=== PATIENT | female | born 1995 | race Caucasian/White ===

== ENCOUNTER 2020-11-02 08:37 | Emergency (ER) | payer MEDICAID ==
[~2020-11-02] VITALS: Ht 165.1 cm; Wt 95.3 kg
[2020-11-02 08:41] VITALS: BP 140/94
[2020-11-02] MEDS ORDERED: FLUORESCEIN OPTH STRIP 1 MG ONE (08:49)
[2020-11-02] MEDS ORDERED: FLUORESCEIN OPTH STRIP 1 MG OP ONE (08:50)
--- NOTE | 2020-11-02 08:50 | NUR ---
PT IN TRIAGE FOR EYE ASSESSMENT WITH PT.
[2020-11-02] MEDS ORDERED: POLY10SO OP (09:00)
[2020-11-02 09:05] VITALS: BP 140/94
--- NOTE | 2020-11-02 09:05 | NUR ---
Patient discharged with v/s stable. Written and verbal after care instructions given and explained. Patient alert, oriented and verbalized understanding of instructions. Ambulatory with steady gait. All questions addressed prior to discharge. ID band removed. Patient advised to follow up with PMD. Rx of POLYMYXIN B SULFATE given. Patient educated on indication of medication including possible reaction and side effects. Opportunity to ask questions provided and answered.
== END 2020-11-02 09:05 | disposition home or self-care (01) ==
LOC: MED 08:37
DX: H10.9 Unspecified conjunctivitis (principal)
CPT/HCPCS: 81025; 99283

== ENCOUNTER 2021-09-28 02:27 | Observation (INO) | payer MEDICAID ==
[~2021-09-28] VITALS: Ht 167.6 cm; Wt 108.9 kg
[~2021-09-28 02:27] MED LIST: POLY10SO OP
[2021-09-28 03:19] VITALS: BP 113/61
[2021-09-28] MEDS ORDERED: LACTATED RINGERS 500 ML IV SCH ×2 (03:30)
[2021-09-28] MEDS ORDERED: MORPHINE SULFATE 5 MG/ML VIAL IVP PRN (03:35)
[2021-09-29] MEDS ORDERED: LACTATED RINGERS 1,000 ML IV SCH ×2 (03:30)
== END 2021-09-28 08:30 | disposition home or self-care (01) ==
LOC: MLD 02:27
PROVIDERS: ADMIT Obstetrics & Gynecology; ATTEND Obstetrics & Gynecology
DX: O99.891 Other specified diseases and conditions complicating pregnancy (principal); M54.9 Dorsalgia, unspecified; M79.605 Pain in left leg; O26.893 Other specified pregnancy related conditions, third trimester; R10.32 Left lower quadrant pain; Z3A.34 34 weeks gestation of pregnancy
CPT/HCPCS: 59025; 76805; 81000; 96360; 96361; G0378; Q0092

== ENCOUNTER 2022-02-27 11:48 | Inpatient (IN) | payer MEDICAID ==
[~2022-02-27] VITALS: Ht 167.6 cm; Wt 102.5 kg
[2022-02-27 11:50] VITALS: BP 107/65
[2022-02-27 12:34] LABS: BASOPHILS # (AUTO) 0.1 K/uL (0.00-0.22); BASOPHILS % (AUTO) 1.2 % (0.0-2.0); EOSINOPHILS # (AUTO) 0.2 K/uL (0-0.4); EOSINOPHILS % (AUTO) 2.5 % (0.0-4.0); HEMATOCRIT 33.7 % (36-48); HEMOGLOBIN 10.7 g/dL (12.0-16.0); LYMPHOCYTES # (AUTO) 2.8 K/uL (2.5-16.5); LYMPHOCYTES % (AUTO) 29.6 % (20.5-51.1); MEAN CORPUSCULAR HEMOGLOBIN 24 pg (27-31); MEAN CORPUSCULAR HGB CONC 32 g/dL (33-37); MEAN CORPUSCULAR VOLUME 74.4 fL (80-94); MONOCYTES # (AUTO) 0.7 K/uL (0.8-1.0); NEUTROPHILS # (AUTO) 5.6 K/uL (1.8-7.7); NEUTROPHILS % (AUTO) 59.7 % (42.2-75.2); PLATELET COUNT (AUTO) 309 K/uL (140-450); RED BLOOD CELL COUNT(AUTO) 4.53 MIL/uL (4.20-5.40); RED CELL DISTRIBUTION WIDTH 16.1 % (11.6-13.7); WHITE BLOOD COUNT (AUTO) 9.4 K/uL (4.8-10.8)
[2022-02-27] MEDS ORDERED: NACL 0.9% 1,000 ML IV ONE ×2 (12:45→14:35)
[2022-02-27 13:06] LABS: ANION GAP 11.8 (8-16); CARBON DIOXIDE 25.3 mmol/L (21-32); CREATININE 0.9 mg/dL (0.6-1.3); POTASSIUM 4.1 mmol/L (3.5-5.1); TOTAL BILIRUBIN 0.4 mg/dL (0.0-1.0)
--- NOTE | 2022-02-27 13:06 | NUR ---
Ultrasound at bedside.
[2022-02-27 13:22] LABS: APPEARANCE,URINE CLEAR (CLEAR); BILIRUBIN,URINE NEGATIVE (NEGATIVE); BLOOD, URINE TRACE-I (NEGATIVE); COLOR,URINE YELLOW (YELLOW); LEUKOCYTE ESTERASE ,URINE 1+ (NEGATIVE); NITRITE, URINE NEGATIVE (NEGATIVE); UGLUCOSE NEGATIVE (NEGATIVE)
[2022-02-27 13:44] LABS: RBC,URINE 0-5 /HPF (0-5); WBC,URINE 0-5 /HPF (0-5)
[2022-02-27 13:45] LABS: OTHER CASTS, URINE None Seen /LPF (None Seen)
[2022-02-27] MEDS ORDERED: NACL 0.9% 1,000 ML IV SCH (14:30)
--- NOTE | 2022-02-27 14:30 | NUR ---
HANDOFF REPORT RECEIVED FROM CELINA OTOOLE. 26/F C/O RLQ ABD PAIN AND NV X1 DAY. PT REPORTS INCREASING AND WORSENING PAIN TODAY. PT ALSO REPORTS NAUSEA. PT DENIES TAKING ANY MEDS FOR PAIN. DENIES AT THIS TIME. . PT ALSO REPORTS DIZZINESS. SKIN COOL AND CLAMMY UPON OBSERVATION. AAO4. 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 PMH:DENIES ALLERGIES:ACETAMINOPHEN
--- NOTE | 2022-02-27 14:33 | NUR ---
Patient takes no medication. Med recon complete.
[2022-02-27] MEDS ORDERED: fentaNYL citrate 0.05 MG/ML VIAL IVP ONE (14:45)
--- NOTE | 2022-02-27 14:45 | NUR ---
PER DR WATSON, HOLD EMERGENCY BLOOD TRANSFUSION AT THIS TIME. PER DR WATSON, INITIATE TRANSFUSION IF PATIENT BECOMES HYPOTENSIVE. PER HOUSE SUP DARY, OR BED BEING PREPARED, ETA BETWEEN [id number]. PT CALM AND RESTING. PT C/O 10/10 PELVIC PAIN RADIATING TO LOWER ABD. DR HERNÁNDEZ MADE AWARE.
--- NOTE | 2022-02-27 14:57 | NUR ---
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
--- NOTE | 2022-02-27 15:02 | NUR ---
NOTIFIED DR ROY OF LOW BP OF 70/33. PER MD, ADMINISTER EMERGENCY TRANSFUSION AT THIS TIME.
--- NOTE | 2022-02-27 15:15 | NUR ---
PENDING COVID RESULT. PAGED LAB FOR ETA ON RESULT. PER LAB, ETA FOR COVID RESULT 15 MIN. OR NURSE MADE AWARE.
--- NOTE | 2022-02-27 15:15 | NUR ---
OR NURSE AT BEDSIDE
--- NOTE | 2022-02-27 15:30 | NUR ---
15 MIN POST TRANSFUSION INITIATION: NO REACTION NOTED.
[2022-02-27 15:31] VITALS: BP 95/55
--- NOTE | 2022-02-27 15:48 | NUR ---
PT LEFT TO OR ACCOMPANIED BY 2 OR NURSE. PT LEFT WITH IV BLOOD TRANSFUSION RUNNING. PT LEFT VIA GURNEY.
[2022-02-27] MEDS ORDERED: PROPOFOL 200 MG/20 ML VIAL IV ONE (15:55)
[2022-02-27] MEDS ORDERED: HYDROmorphone PFS 2 MG/ML SYR ONE (15:55)
[2022-02-27] MEDS ORDERED: LIDOCAINE MPF 2% 100 MG/5 ML VIAL INJ ONE (16:07)
[2022-02-27] MEDS ORDERED: ROCURONIUM 50 MG/5 ML VIAL IV ONE (16:07)
[2022-02-27] MEDS ORDERED: ONDANSETRON 4 MG/2 ML VIAL IVP PRN ×2 (16:15→17:10)
[2022-02-27] MEDS ORDERED: HYDROmorphone PFS 2 MG/ML SYR IVP PRN (16:15)
[2022-02-27] MEDS ORDERED: oxyCODONE/APAP 5/325 MG 1 TAB TAB PO PRN ×2 (16:15)
[2022-02-27] MEDS ORDERED: SIMETHICONE 80 MG TAB.CHEW PO PRN (16:15)
[2022-02-27] MEDS ORDERED: KETOROLAC 30 MG/ML VIAL IVP PRN (16:15)
[2022-02-27] MEDS ORDERED: TEMAZEPAM 15 MG CAP PO PRN (16:15)
[2022-02-27] MEDS ORDERED: IBUPROFEN 800 MG TAB PO PRN (16:15)
[2022-02-27] MEDS ORDERED: BUPIVACAINE-MPF 0.25% 30 ML VIAL INJ ONE (16:25)
[2022-02-27] MEDS ORDERED: NEOSTIGMINE 1:1000 10 MG/10 ML VIAL ONE (16:48)
[2022-02-27] MEDS ORDERED: GLYCOPYRROLATE 0.2 MG/ML VIAL ONE (16:48)
[2022-02-27] MEDS ORDERED: ONDANSETRON 4 MG/2 ML VIAL ONE (16:55)
[2022-02-27] MEDS ORDERED: DEXAMETHASONE 4 MG/ML VIAL ONE (16:55)
[2022-02-27] MEDS ORDERED: HYDROmorphone 1 MG/ML AMP IVP PRN (17:10)
[2022-02-27] MEDS ORDERED: MEPERIDINE 25 MG/ML SYR IVP PRN (17:10)
[2022-02-27 20:23] LABS: HEMATOCRIT 33.7 % (36-48); MEAN CORPUSCULAR HEMOGLOBIN 25 pg (27-31); MEAN CORPUSCULAR HGB CONC 33 g/dL (33-37); MEAN CORPUSCULAR VOLUME 75.4 fL (80-94); PLATELET COUNT (AUTO) 274 K/uL (140-450); RED BLOOD CELL COUNT(AUTO) 4.46 MIL/uL (4.20-5.40); RED CELL DISTRIBUTION WIDTH 16.1 % (11.6-13.7); WHITE BLOOD COUNT (AUTO) 19.8 K/uL (4.8-10.8)
[2022-02-27] MEDS ORDERED: LACTATED RINGERS 1,000 ML IV SCH (20:50)
[2022-02-27] MEDS ORDERED: DOCUSATE SOD/SENNA 50/8.6 MG 1 TAB PO SCH (21:00)
[2022-02-27 22:40] LABS: LYMPHOCYTES % (MANUAL) 6 % (20-46); MONOCYTES % (MANUAL) 0 % (5-12)
--- NOTE | 2022-02-28 09:09 | NUR ---
PATIENT HAS BEEN SCREENED AND CATEGORIZED LOW NUTRITION RISK. PATIENT WILL BE SEEN WITHIN 7 DAYS OF ADMISSION. 02/27/22-03/06/[address]
[2022-02-28] MEDS ORDERED: CAMERA MC ONE ×2 (10:10→14:31)
== END 2022-02-28 18:02 | disposition home or self-care (01) | DRG 547 ==
LOC: MED 11:48 → MTU 14:34 → MFCC 15:52 → UNDODISIN 02-28 18:02
PROVIDERS: ADMIT Obstetrics & Gynecology; ATTEND Obstetrics & Gynecology
PROC: 0UB60ZZ Excision of Left Fallopian Tube, Open Approach (ICD-10-PCS; principal; 2022-02-27 15:30)
DX: O00.80 Other ectopic pregnancy without intrauterine pregnancy (principal); Z20.822 Contact with and (suspected) exposure to COVID-19; Z98.891 History of uterine scar from previous surgery
CPT/HCPCS: 36415; 76830; 80053; 81001; 83690; 84702; 85018; 85025; 86886; 86900; 86901; 86920; 87086; 96360; 96361; 96374; 99291; J0690; J1100; J1170; J2001; J2405; J2704; J2710; J3010; J3490; J7030; J7060; J7120; Q0092